=== PATIENT | male | born 2000 | race African-American/Black ===

== ENCOUNTER 2021-06-26 17:18 | Emergency (ER) | payer MEDICAID ==
[~2021-06-26] VITALS: Ht 175.3 cm; Wt 75.0 kg
[~2021-06-26 17:18] MED LIST: ALBUTEROL INHALER
[2021-06-26 17:31] VITALS: BP 120/81
[2021-06-26] MEDS ORDERED: KETOROLAC 60MG/2ML VIAL IM ONE (21:15)
[2021-06-26] MEDS ORDERED: IBUP-2028 MT (22:11)
== END 2021-06-26 23:13 | disposition home or self-care (01) ==
LOC: ER 17:18
DX: M79.671 Pain in right foot (principal)
CPT/HCPCS: 29515; 73630; 99283; J1885; Z7610